=== PATIENT | male | born 1995 | race Caucasian/White ===

== ENCOUNTER 2022-11-29 17:16 | Emergency (ER) | payer MEDICAID ==
[~2022-11-29] VITALS: Ht 175.3 cm; Wt 90.7 kg
[2022-11-29 17:16] VITALS: BP_SYST 145; PULSE 77; RESP 18; TEMP 97.8; O2SAT 97
[2022-11-29] MEDS ORDERED: DIPHTH,PERTUSS(ACELL),TET VAC 0.5 ML VIAL (Tdap) I.M. ONE (17:45)
[2022-11-29] MEDS ORDERED: BACITRACIN 1 GM OINT TP ONE (17:48)
[2022-11-29 18:35] VITALS: BP_SYST 132; PULSE 62; RESP 16; TEMP 97.8; O2SAT 98
== END 2022-11-29 18:35 | disposition home or self-care (01) ==
LOC: SED 17:16
DX: S61.011A Laceration without foreign body of right thumb without damage to nail, initial encounter (principal); Z23 Encounter for immunization; W26.0XXA Contact with knife, initial encounter; Y93.89 Activity, other specified; Y92.89 Other specified places as the place of occurrence of the external cause; Y99.8 Other external cause status
CPT/HCPCS: 90715; 99283